=== PATIENT | female | born 1970 | race Caucasian/White ===

== ENCOUNTER 2018-03-18 19:52 | Emergency (ER) | payer SELFPAY ==
[~2018-03-18] VITALS: Ht 157.5 cm; Wt 56.2 kg
[2018-03-18 20:28] VITALS: Ht 157.5 cm; Wt 56.2 kg
[2018-03-19 01:08] VITALS: BP 116/79
== END 2018-03-19 01:08 | disposition home or self-care (01) ==
LOC: ED 19:52
DX: S52.502A Unspecified fracture of the lower end of left radius, initial encounter for closed fracture (principal); S52.602A Unspecified fracture of lower end of left ulna, initial encounter for closed fracture; Z88.5 Allergy status to narcotic agent; Z88.8 Allergy status to other drugs, medicaments and biological substances; W01.0XXA Fall on same level from slipping, tripping and stumbling without subsequent striking against object, initial encounter; Y93.89 Activity, other specified; Y92.89 Other specified places as the place of occurrence of the external cause; Y99.8 Other external cause status
CPT/HCPCS: J2001; J3010